=== PATIENT | male | born 1985 | race Caucasian/White ===

== ENCOUNTER 2021-03-06 12:23 | Emergency (ER) | payer OTHER ==
[~2021-03-06] VITALS: Ht 175.3 cm; Wt 72.6 kg
[2021-03-06 12:32] VITALS: BP 120/81
[2021-03-06] MEDS ORDERED: ONDA4TAB11 PO (12:40)
[2021-03-06] MEDS ORDERED: ONDANSETRON 4 MG TAB.RAPDIS ONE (12:40)
--- NOTE | 2021-03-06 12:47 | NUR ---
[id number]. Written and verbal after care instructions given. Patient verbalizes understanding of instruction.
[2021-03-06] MEDS ORDERED: ONDANSETRON 4 MG TAB.RAPDIS SL ONE (13:00)
== END 2021-03-06 12:48 ==
LOC: ER 12:32
DX: Z02.89 Encounter for other administrative examinations (principal); F11.23 Opioid dependence with withdrawal
CPT/HCPCS: 99283; Q0162